=== PATIENT | male | born 1970 | race Two or more races ===

== ENCOUNTER 2022-07-24 05:20 | Day surgery (SDC) | payer OTHER ==
[~2022-07-24] VITALS: Ht 175.3 cm; Wt 72.6 kg
== END 2022-07-24 10:15 | disposition home or self-care (01) ==
LOC: CIR.AMB 05:20
PROVIDERS: ATTEND Specialist
DX: D17.0 Benign lipomatous neoplasm of skin and subcutaneous tissue of head, face and neck (principal); Z91.041 Radiographic dye allergy status; Z91.040 Latex allergy status; F12.90 Cannabis use, unspecified, uncomplicated; Z20.822 Contact with and (suspected) exposure to COVID-19